=== PATIENT | female | born 1980 | race American Indian/Alaskan Native ===

== ENCOUNTER 2018-08-08 10:41 | Emergency (ER) | payer OTHER ==
[2018-08-08 11:10] VITALS: BP 145/77
--- NOTE | 2018-08-08 15:50 | Emergency Department Report ---
ED Headache HPI - General Chief Complaint: Headache Stated Complaint: HEADACHE/DIZZY Time Seen by Provider: 08/08/18 14:59 - History of Present Illness Initial Comments: Patient is a 38-year-old [place] female who states she has had a headache for approximately 2 weeks. Patient states she's had very poor sleep for last 2 weeks because she's been very stressed after the of her mother. Patient had to fly to and from [place] for the . Patient denies any nausea vomiting fevers chills or neck stiffness. Patient states it feels as though heavy bandages around her top of her head. Patient states that sometimes her heart races and she feels shortness of breath and feels faint. Home Medications: Ambulatory Orders ALPRAZolam [Xanax TAB] 0.25 mg PO BID PRN #10 tab 08/08/18 Butalb/Acetamin/Caff 50-325-40 [Fioricet] 1 tab PO Q6HR PRN #10 tab 08/08/18 ED Review of Systems ROS: Stated complaint: HEADACHE/DIZZY Other details as noted in HPI Comment: All other systems reviewed and negative ED Past Medical Hx - Past Medical History Previous Medical History?: No - Surgical History Past Surgical History?: No - Medications Home Medications: Home Medications Medication Instructions Recorded Confirmed Last Taken Type ALPRAZolam [Xanax TAB] 0.25 mg PO BID PRN #10 tab 08/08/18 Unknown Rx Butalb/Acetamin/Caff 50-325-40 1 tab PO Q6HR PRN #10 tab 08/08/18 Unknown Rx [Fioricet] ED Physical Exam - General Limitations: No Limitations General appearance: alert, in no apparent distress - Head Head exam: Present: atraumatic, normocephalic - Eye Eye exam: Present: normal appearance - ENT ENT exam: Present: mucous membranes moist - Neck Neck exam: Present: normal inspection - Respiratory Respiratory exam: Present: normal lung sounds bilaterally. Absent: respiratory distress, wheezes, rales, rhonchi - Cardiovascular Cardiovascular Exam: Present: regular rate, normal rhythm. Absent: systolic murmur, diastolic murmur, rubs, gallop - GI/Abdominal GI/Abdominal exam: Present: soft, normal bowel sounds. Absent: distended, tenderness, guarding, rebound - Extremities Exam Extremities exam: Present: normal inspection - Back Exam Back exam: Present: normal inspection - Neurological Exam Neurological exam: Present: alert, oriented X3 - Psychiatric Psychiatric exam: Present: normal affect, normal mood - Skin Skin exam: Present: warm, dry, intact, normal color. Absent: rash ED Course Vital Signs 08/08/18 11:04 Temperature 98.1 F Pulse Rate 89 Respiratory 18 Rate Blood Pressure 145/77 O2 Sat by Pulse 100 Oximetry ED Medical Decision Making - Medical Decision Making Patient's headache distribution is consistent with stress headaches. Patient be given Xanax and Fioricet for headaches and the patient be discharged home. Critical care attestation.: If time is entered above; I have spent that time in minutes in the direct care of this critically ill patient, excluding procedure time. ED Disposition Clinical Impression: Stress headache Disposition: DC-01 TO HOME OR SELFCARE Is pt being admited?: No Does the pt Need Aspirin: No Condition: Stable Instructions: Tension Headache (ED), Grief and Loss (ED) Referrals: PRIMARY CARE, [Primary Care Provider] - 3-5 Days Time of Disposition: 15:50
== END 2018-08-08 16:01 | disposition home or self-care (01) ==
LOC: ED 10:41
DX: G44.89 Other headache syndrome (principal); R06.02 Shortness of breath; R00.0 Tachycardia, unspecified
CPT/HCPCS: 99281